=== PATIENT | male | born 1970 | race Caucasian/White ===

== ENCOUNTER 2025-04-19 09:46 | Day surgery (SDC) | payer BC ==
[~2025-04-19] VITALS: Ht 182.9 cm; Wt 98.8 kg
[~2025-04-19 09:46] MED LIST: LISI30TA4 PO; OMEP-173 PO; ROSU20TA86 PO; TADA20TA PO; TEST30SO TOP
[2025-04-19] MEDS ORDERED: CETACAINE SPRAY 5 GM As Ordered ONE (11:43)
[2025-04-19 12:04] VITALS: TEMP 98.4
[2025-04-19 12:46] VITALS: BP 138/85; O2SAT 97
== END 2025-04-19 12:54 | disposition home or self-care (01) ==
LOC: M OPP 09:46
PROVIDERS: ATTEND Internal Medicine Gastroenterology
DX: Z12.11 Encounter for screening for malignant neoplasm of colon (principal); R19.5 Other fecal abnormalities; D12.3 Benign neoplasm of transverse colon; K57.30 Diverticulosis of large intestine without perforation or abscess without bleeding; K64.0 First degree hemorrhoids; K44.9 Diaphragmatic hernia without obstruction or gangrene; R12 Heartburn; Z79.899 Other long term (current) drug therapy; F17.210 Nicotine dependence, cigarettes, uncomplicated
CPT/HCPCS: 43239; 45381; 45385; 88305; J3010